=== PATIENT | male | born 1950 | race Caucasian/White ===

== ENCOUNTER → 2017-06-01 | Outpatient (CLI) | payer MEDICARE ==
[~2017-06-01] MED LIST: ASPIRIN; ASPIRIN81 M1 PO; CELEXA20 MG PO; LOPRESSOR; LORTAB 7.5-5001 TAB; LOTREL 10/40 MG1 CAP PO; LOTREL 5/20 MG1 CAP; ZOCOR
[2017-06-01 10:56] LABS: CREATININE SERUM 0.9 mg/dL (0.6-1.4); GLOM FILT RATE Estimated 89.3 mL/min (>60)
== END | disposition home or self-care (01) ==
LOC: CLAB 09:52
PROVIDERS: Surgery Vascular Surgery
DX: I71.4 Abdominal aortic aneurysm, without rupture (principal)
CPT/HCPCS: 36415; 82565; 84520

== ENCOUNTER → 2017-06-04 | Outpatient (CLI) | payer MEDICARE ==
--- NOTE | ~2017-06-04 | CT14 ---
[facility] A Service of [facility] / [facility] RADIOLOGY TEXT RESULTS PATIENT: ANTOINETTE MCDANIEL [facility] UNIT #: [id number] AGE: [address]: Kunal Rooney MD SEX: M ORDER DR: [id number] [facility] [address] [place], [place] [address] [id number] O MR#: [id number] [facility] #: [id number] NAME: ANTOINETTE MCDANIEL : 1950 SEX: M STUDY DATE/TIME: 06/04/2017 9:58 UNIT: [facility] ROOM: STUDY DESCRIPTION: CT Angio Abdomen and Pelvis Attending Physician: Kunal Rooney M.D. Ordering Physician: Kunal Rooney M.D. Primary Care Physician: Heather Belcher [facility] IMAGING REPORT This report is preliminary unless electronic signature is present EXAM CT angiogram of the abdomen and pelvis INDICATION Followup aortic aneurysm. TECHNIQUE CT angiogram of the abdomen and pelvis was performed following the administration of IV contrast. Coronal and sagittal reformatted images were obtained. 3-D reformatted images also obtained. This CT exam was performed with one or more of the following radiation dose reduction techniques: automatic exposure control, adjustment of mA and/or kV according to patient size, and iterative reconstruction. COMPARISON 12/01/[address] ANGIOGRAM: Stable aneurysmal dilatation of the abdominal aorta at the level of the renal arteries measuring about 4.6 cm in greatest AP dimension. Below this the patient appears to have had a previous graft repair. Repair graft is widely patent. The aneurysm sac around the graft is stable in size measuring 8.9 cm in maximum AP dimension. The iliac arteries are patent with scattered atherosclerotic plaque. 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 Celiac artery is patent. The SMA is patent. Both of the renal arteries are patent. CT OF THE ABDOMEN: Emphysema in the lung bases. Multiple hepatic cysts. The gallbladder and spleen are unremarkable. The kidneys are unremarkable. Stable minimal nodularity of the adrenal glands. Pancreas is unremarkable. [facility] A Service of [facility] RADIOLOGY TEXT RESULTS PATIENT: ANTOINETTE MCDANIEL LOCATION: [facility] : 52 UNIT #: [id number] AGE: [address]: Kunal Rooney MD SEX: M ORDER DR: PELVIS: There is hypervascularity within the rectum which has been seen on multiple prior studies dating back to 2005. 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 There are small fat-containing inguinal hernias bilaterally. Bone windows demonstrate degenerative changes of the lumbar spine. IMPRESSION 1. Stable aneurysm of the abdominal aorta at the level of the renal arteries measuring about 4.6 cm. 2. Stable infrarenal aortic aneurysm repair graft. The graft is widely patent. The aneurysm sac around the graft is stable. 3. 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 Dictated by... Kvng Bryan M.D. THIS IS AN ELECTRONICALLY VERIFIED REPORT Kvng Bryan M.D. at 06/06/2017 5:00 PM Katherine TD: 06/05/2017 09:50 JOB #: [id number] MEDICAL IMAGING REPORT Page 1 of 1 COPY
== END | disposition home or self-care (01) ==
LOC: CCAT 08:50
DX: I71.4 Abdominal aortic aneurysm, without rupture (principal)
CPT/HCPCS: 74174; Q9967